=== PATIENT | male | born 1985 | race Caucasian/White ===

== ENCOUNTER 2018-07-01 09:41 | Emergency (ER) | payer BC, OTHER ==
--- NOTE | 2018-07-01 10:30 | RAD ---
CHEST 2 VIEWS: HISTORY: Cough. COMPARISON: None. FINDINGS: There is a nodular density projecting in the left mid lung. The remainder of the lungs is clear. No pneumothorax. No effusion. IMPRESSION: Nodular density of the left mid lung. This may represent a nodule versus a scar from resolving infec tion. Followup recommended. POS: [facility]
[2018-07-01] MEDS ORDERED: Benzonatate 100 MG CAP ONE (10:36)
[2018-07-01] MEDS ORDERED: Dexamethasone 4 MG TAB ONE (10:36)
[2018-07-01] MEDS ORDERED: HYDROcodone/Acetaminophen 5/325 mg Tablet ONE (10:36)
[2018-07-01] MEDS ORDERED: Amoxicillin/Potassium Clav 875 MG TAB ONE (10:36)
== END 2018-07-01 11:00 | disposition home or self-care (01) ==
LOC: MADERS 09:41
DX: J18.9 Pneumonia, unspecified organism (principal)
CPT/HCPCS: 71046; J8540

== ENCOUNTER 2025-07-14 16:21 | Emergency (ER) | payer BC, OTHER | END 2025-07-14 17:50 | disposition home or self-care (01) | LOC: MADERS 16:21 | DX: S93.401A Sprain of unspecified ligament of right ankle, initial encounter (principal); S76.011A Strain of muscle, fascia and tendon of right hip, initial encounter; I10 Essential (primary) hypertension; F17.220 Nicotine dependence, chewing tobacco, uncomplicated; W18.42XA Slipping, tripping and stumbling without falling due to stepping into hole or opening, initial encounter; Z79.899 Other long term (current) drug therapy | CPT/HCPCS: 99283 ==